=== PATIENT | female | born 1985 | race American Indian/Alaskan Native ===

== ENCOUNTER 2021-12-31 11:28 | Emergency (ER) | payer OTHER ==
--- NOTE | 2021-12-31 12:06 | Emergency Department Report ---
History of Present Illness - General Chief Complaint: Overdose Stated Complaint: OVERDOSE VITAMIN D3 Time Seen by Provider: 12/31/21 11:51 Source: patient Mode of arrival: Ambulatory Limitations: No Limitations - History of Present Illness Initial Comments: Patient presents as a referral from urgent care secondary to vitamin D overdose. Patient was prescribed 1250 mcg of vitamin D. She was supposed to take this weekly. The prescription was not clear to her and she has been taking it daily for 2 weeks. She went to urgent care today because she was feeling weak. She states that she is kind of achy all over. She is nauseous. They figured out that she had an overdose of D3. EKG was done which is normal. The patient was referred here for further management. Patient has no chest pain. Has no cough or congestion. She states that she just kind of achy and sore. She reports generalized weakness, no focal weakness. There is no dizziness. She does not have any type of visual changes. There has been no problems with constipation that she reports. - Related Data Previous Rx's Medication Instructions Recorded Last Taken Type traMADoL [Ultram] 50 mg PO Q6HR PRN #10 tablet 03/17/16 Unknown Rx Metoclopramide [Reglan] 10 mg PO ACHS PRN #30 tablet 12/31/21 Unknown Rx Allergies Allergy/AdvReac Type Severity Reaction Status Date / Time No Known Allergies Allergy Unverified 07/16/14 19:54 ED Review of Systems ROS: Stated complaint: OVERDOSE VITAMIN D3 Other details as noted in HPI Comment: All other systems reviewed and negative Constitutional: denies: fever Eyes: denies: vision change ENT: denies: throat pain Respiratory: denies: cough Cardiovascular: denies: chest pain Endocrine: denies: unexplained weight loss Gastrointestinal: denies: abdominal pain Genitourinary: denies: dysuria Musculoskeletal: denies: back pain Skin: denies: rash Neurological: denies: headache Hematological/Lymphatic: denies: easy bruising ED Past Medical Hx - Social History Smoking Status: Never Smoker Substance Use Type: None - Medications Home Medications: Home Medications Medication Instructions Recorded Confirmed Last Taken Type traMADoL [Ultram] 50 mg PO Q6HR PRN #10 tablet 03/17/16 Unknown Rx Metoclopramide [Reglan] 10 mg PO ACHS PRN #30 tablet 12/31/21 Unknown Rx ED Physical Exam - General Limitations: No Limitations, Other (Pulse ox noted and normal) General appearance: alert, in no apparent distress - Head Head exam: Present: atraumatic, normocephalic - Eye Eye exam: Present: normal appearance, PERRL, EOMI - ENT ENT exam: Present: normal orophraynx, normal external ear exam - Neck Neck exam: Present: normal inspection. Absent: meningismus - Respiratory Respiratory exam: Present: normal lung sounds bilaterally. Absent: respiratory distress - Cardiovascular Cardiovascular Exam: Present: regular rate, normal rhythm, systolic murmur (2/6 which is chronic for her) - GI/Abdominal GI/Abdominal exam: Present: soft. Absent: distended, tenderness - Extremities Exam Extremities exam: Present: normal capillary refill - Back Exam Back exam: Absent: CVA tenderness (R), CVA tenderness (L) - Neurological Exam Neurological exam: Present: alert, oriented X3, CN II-XII intact, normal gait, reflexes normal. Absent: motor sensory deficit - Psychiatric Psychiatric exam: Present: normal affect, normal mood - Skin Skin exam: Present: warm, dry ED Course Vital Signs 12/31/21 11:38 Temperature 98.0 F Pulse Rate 72 Respiratory 18 Rate Blood Pressure 131/83 O2 Sat by Pulse 99 Oximetry - Reevaluation(s) Reevaluation #1: 12/31/21 12:09 EKG from the outside facility was noted. This was normal. Patient has normal intervals and a normal QT. ED Medical Decision Making - Medical Decision Making Patient presents secondary to vitamin D3 overdose. This is accidental. I am not concerned for suicidal thoughts. She certainly could have hypercalcemia but does not have EKG changes suggestive of such. She does not have tetany. She does not have other features of hypercalcemia that would require immediate treatment. We have discussed outpatient management. Poison control was contacted by the nursing staff. Patient was subsequently discharged. We did hold her medication. We have discussed the avoidance of dairy products until she can follow with a regular physician. I did discuss labs with the patient. This was discussed as the recommendation from poison control. She had already had an EKG obtained which was unremarkable. Patient states that she would prefer just to go home and drink water. She is comfortable without laboratory evaluation. Critical Care Time: No Critical care attestation.: If time is entered above; I have spent that time in minutes in the direct care of this critically ill patient, excluding procedure time. ED Disposition Clinical Impression: General weakness, Referred by health career manager Accidental overdose Qualifiers: Encounter type: initial encounter Qualified Code(s): T50.901A - Poisoning by unspecified drugs, medicaments and biological substances, accidental (unintenti onal), initial encounter Disposition: HOME / SELF CARE / HOMELESS Is pt being admited?: No Condition: Stable Instructions: Weakness, [id number], Accidental Drug Poisoning, Adult, Weakness Additional Instructions: Drink plenty water. Stop taking D3 for 5 days. Follow-up with your family doctor for repeat dosing and appropriate prescription. Return for any problems or concerns. Avoid dairy products for 5 days. Prescriptions: Metoclopramide [Reglan] 10 mg PO ACHS PRN #30 tablet PRN Reason: Nausea Referrals: PRIMARY CARE, [Primary Care Provider] - 3-5 Days
[2021-12-31 12:28] VITALS: BP 126/82
== END 2021-12-31 12:29 | disposition home or self-care (01) ==
LOC: ED 11:28
DX: T45.2X1A Poisoning by vitamins, accidental (unintentional), initial encounter (principal); R53.1 Weakness; Y92.89 Other specified places as the place of occurrence of the external cause
CPT/HCPCS: 99282